=== PATIENT | male | born 1995 | race American Indian/Alaskan Native ===

== ENCOUNTER 2017-03-28 22:20 | Emergency (ER) | payer SELFPAY ==
[2017-03-28 22:48] VITALS: BP 127/85
== END 2017-03-29 01:50 | disposition left against medical advice (07) ==
LOC: ED 22:20
DX: M54.2 Cervicalgia (principal); R51 Headache; Z53.21 Procedure and treatment not carried out due to patient leaving prior to being seen by health care provider